=== PATIENT | female | born 1945 | race Caucasian/White ===

== ENCOUNTER → 2017-03-22 | Outpatient (CLI) | payer OTHER ==
[~2017-03-22] MED LIST: ALLEGRA ALLERGY60 MG; CIPRO100 MG; FLAGYL375 MG; MUCINEX DM ER1 EACH; PREMPHASE 0.621 EACH; SINGULAIR 5MG5 MG; [UNRECOGNIZED DRUG - OTHER]
== END | disposition home or self-care (01) ==
LOC: RAD 16:34
DX: M17.11 Unilateral primary osteoarthritis, right knee (principal)

== ENCOUNTER 2018-09-05 11:48 | Outpatient (CLI) | payer OTHER | END 2018-09-05 11:51 | disposition home or self-care (01) | LOC: RAD 11:48 | DX: G44.83 Primary cough headache (principal); J01.90 Acute sinusitis, unspecified; J32.8 Other chronic sinusitis ==

== ENCOUNTER 2019-01-13 15:30 | Outpatient (CLI) | payer OTHER | END 2019-01-13 15:36 | disposition home or self-care (01) | LOC: RAD 15:30 | DX: M17.0 Bilateral primary osteoarthritis of knee (principal) ==

== ENCOUNTER → 2020-07-06 | Emergency (ER) | payer OTHER ==
[~2020-07-06] VITALS: Ht 160 cm; Wt 80.7 kg
== END | disposition left against medical advice (07) ==
LOC: ER 17:53
DX: R10.32 Left lower quadrant pain (principal)

== ENCOUNTER → 2020-11-23 08:00 | Outpatient (CLI) | payer OTHER | END | disposition home or self-care (01) | LOC: PPH VACUNA 08:00 | PROVIDERS: ATTEND Emergency Medicine Pediatric Emergency Medicine | DX: Z23 Encounter for immunization (principal) ==

== ENCOUNTER 2020-12-21 08:56 | Outpatient (CLI) | payer OTHER | END 2020-12-21 09:01 | disposition home or self-care (01) | LOC: RAD 08:56 | PROVIDERS: ATTEND Orthopaedic Surgery Sports Medicine | DX: M17.0 Bilateral primary osteoarthritis of knee (principal) ==

== ENCOUNTER 2021-03-27 08:55 | Outpatient (CLI) | payer OTHER | END 2021-03-27 08:57 | disposition home or self-care (01) | LOC: RAD 08:55 | PROVIDERS: ATTEND Orthopaedic Surgery Adult Reconstructive Orthopaedic Surgery | DX: I11.9 Hypertensive heart disease without heart failure (principal) ==

== ENCOUNTER → 2021-04-10 13:35 | Outpatient (CLI) | payer OTHER | END | disposition home or self-care (01) | LOC: NUCLEAR 13:35 | PROVIDERS: ATTEND Internal Medicine | DX: I87.2 Venous insufficiency (chronic) (peripheral) (principal) ==

== ENCOUNTER 2021-04-13 15:29 | Outpatient (CLI) | payer OTHER | END 2021-04-13 15:34 | disposition home or self-care (01) | LOC: SONOGRAMA 15:29 | PROVIDERS: ATTEND Internal Medicine | DX: M71.21 Synovial cyst of popliteal space [Baker], right knee (principal); R22.41 Localized swelling, mass and lump, right lower limb ==

== ENCOUNTER → 2021-04-15 | Emergency (ER) | payer OTHER ==
[~2021-04-15] VITALS: Ht 157.5 cm; Wt 83.9 kg
== END | disposition home or self-care (01) ==
LOC: ER 16:51
DX: K57.32 Diverticulitis of large intestine without perforation or abscess without bleeding (principal); R10.84 Generalized abdominal pain

== ENCOUNTER 2021-04-19 11:12 | Inpatient (IN) | payer OTHER | END 2021-04-20 16:05 | disposition home or self-care (01) | DRG 392 | LOC: SURH 11:12 → SEC-K 11:12 → SURH 11:22 | PROVIDERS: ADMIT Internal Medicine; ATTEND Internal Medicine | DX: K57.30 Diverticulosis of large intestine without perforation or abscess without bleeding (principal); A04.72 Enterocolitis due to Clostridium difficile, not specified as recurrent; R10.30 Lower abdominal pain, unspecified; K62.89 Other specified diseases of anus and rectum ==

== ENCOUNTER 2021-07-05 09:12 | Outpatient (CLI) | payer OTHER | END 2021-07-05 09:16 | disposition home or self-care (01) | LOC: RAD 09:12 | PROVIDERS: ATTEND Orthopaedic Surgery Adult Reconstructive Orthopaedic Surgery | DX: Z96.651 Presence of right artificial knee joint (principal); M17.12 Unilateral primary osteoarthritis, left knee ==

== ENCOUNTER 2021-08-15 09:50 | Outpatient (CLI) | payer OTHER | END 2021-08-15 10:10 | disposition home or self-care (01) | LOC: TOM 09:50 | PROVIDERS: ATTEND Internal Medicine | DX: M25.561 Pain in right knee (principal); Z96.651 Presence of right artificial knee joint ==

== ENCOUNTER 2021-10-03 07:51 | Outpatient (CLI) | payer OTHER | END 2021-10-03 08:10 | disposition home or self-care (01) | LOC: SONOGRAMA 07:51 | PROVIDERS: ATTEND Internal Medicine | DX: R10.2 Pelvic and perineal pain (principal) ==

== ENCOUNTER 2021-11-30 09:19 | Outpatient (CLI) | payer OTHER | END 2021-11-30 12:34 | disposition home or self-care (01) | LOC: TOM 09:19 | PROVIDERS: ATTEND Otolaryngology | DX: R51.9 Headache, unspecified (principal); M17.12 Unilateral primary osteoarthritis, left knee; T84.84XA Pain due to internal orthopedic prosthetic devices, implants and grafts, initial encounter ==

== ENCOUNTER → 2022-04-12 13:15 | Outpatient (CLI) | payer OTHER | END | disposition home or self-care (01) | LOC: RAD 04-11 15:40 | DX: Z01.818 Encounter for other preprocedural examination (principal); M17.12 Unilateral primary osteoarthritis, left knee; T84.84XA Pain due to internal orthopedic prosthetic devices, implants and grafts, initial encounter ==

== ENCOUNTER 2022-05-17 07:51 | Outpatient (CLI) | payer OTHER | END 2022-05-17 07:57 | disposition home or self-care (01) | LOC: TOM 07:51 | PROVIDERS: ATTEND Internal Medicine | DX: M25.572 Pain in left ankle and joints of left foot (principal) ==

== ENCOUNTER 2022-05-17 10:59 | Outpatient (CLI) | payer OTHER | END 2022-05-17 11:00 | disposition home or self-care (01) | LOC: NUCLEAR 10:59 | PROVIDERS: ATTEND Internal Medicine | DX: I87.2 Venous insufficiency (chronic) (peripheral) (principal) ==

== ENCOUNTER 2022-08-17 08:11 | Outpatient (CLI) | payer OTHER | END 2022-08-17 08:16 | disposition home or self-care (01) | LOC: MRI 08:11 | PROVIDERS: ATTEND Internal Medicine Rheumatology | DX: M05.742 Rheumatoid arthritis with rheumatoid factor of left hand without organ or systems involvement (principal); M05.741 Rheumatoid arthritis with rheumatoid factor of right hand without organ or systems involvement; M05.771 Rheumatoid arthritis with rheumatoid factor of right ankle and foot without organ or systems involvement; M05.772 Rheumatoid arthritis with rheumatoid factor of left ankle and foot without organ or systems involvement | CPT/HCPCS: 73718 ==

== ENCOUNTER 2023-03-22 08:15 | Outpatient (CLI) | payer OTHER | END 2023-03-22 08:23 | disposition home or self-care (01) | LOC: TOM 08:15 | PROVIDERS: ATTEND Colon & Rectal Surgery | DX: K57.32 Diverticulitis of large intestine without perforation or abscess without bleeding (principal) ==

== ENCOUNTER 2023-06-07 08:38 | Outpatient (CLI) | payer OTHER | END 2023-06-07 08:43 | disposition home or self-care (01) | LOC: SONOGRAMA 08:38 | PROVIDERS: ATTEND Colon & Rectal Surgery | DX: M79.641 Pain in right hand (principal); M25.531 Pain in right wrist; T88.8XXA Other specified complications of surgical and medical care, not elsewhere classified, initial encounter; K57.32 Diverticulitis of large intestine without perforation or abscess without bleeding ==

== ENCOUNTER 2023-11-25 09:16 | Outpatient (CLI) | payer OTHER | END 2023-11-25 09:20 | disposition home or self-care (01) | LOC: RAD 09:16 | PROVIDERS: ATTEND Internal Medicine | DX: J01.91 Acute recurrent sinusitis, unspecified (principal); R05.9 Cough, unspecified; J22 Unspecified acute lower respiratory infection ==

== ENCOUNTER 2024-12-18 10:07 | Emergency (ER) | payer OTHER ==
[~2024-12-18] VITALS: Ht 170.2 cm; Wt 77.1 kg
[~2024-12-18 10:07] MED LIST changes: +COVARYX H.S. T1 EACH PO; +ENDOMETRIN100 MG VG; +METFORMIN HCL500 M3 PO; +MOUNJARO2.5 MG/0.5 SQ; +RINVOQ30 MG PO
[2024-12-18] MEDS ORDERED: KETOROLAC TROMETHAMINE 30 MG VIAL IM ONE (10:45)
[2024-12-18] MEDS ORDERED: IBUPROFEN600 MG PO (12:18)
[2024-12-18] MEDS ORDERED: KETOROLAC TROMETHAMINE 10 MG TABLET PO ONE ×2 (12:33→13:00)
== END 2024-12-18 12:56 | disposition home or self-care (01) ==
LOC: ER 10:07
DX: G89.11 Acute pain due to trauma (principal); M25.532 Pain in left wrist; M25.531 Pain in right wrist; M79.642 Pain in left hand; M79.641 Pain in right hand; M79.632 Pain in left forearm

== ENCOUNTER 2024-12-18 13:19 | Outpatient (CLI) | payer OTHER ==
[~2024-12-18 13:19] MED LIST changes: +IBUPROFEN600 MG PO
== END 2024-12-18 13:36 | disposition home or self-care (01) ==
LOC: SONOGRAMA 13:19
PROVIDERS: ATTEND Preventive Medicine Public Health & General Preventive Medicine
DX: S60.222A Contusion of left hand, initial encounter (principal); S60.212A Contusion of left wrist, initial encounter; S60.221A Contusion of right hand, initial encounter; S60.211A Contusion of right wrist, initial encounter; X58.XXXA Exposure to other specified factors, initial encounter; Y93.9 Activity, unspecified; Y92.9 Unspecified place or not applicable; Y99.9 Unspecified external cause status